=== PATIENT | female | born 2000 | race Caucasian/White ===

== ENCOUNTER 2022-04-12 13:32 | Outpatient (CLI) | payer BC, SELFPAY ==
[2022-04-12 21:37] LABS: Chlamydia DNA Amplified* NOT DETECTED (No Detected); GC DNA Amplified* NOT DETECTED (No Detected)
== END 2022-04-12 13:33 | disposition home or self-care (01) ==
PROVIDERS: Visit Provider Physician Assistant
DX: Z01.419 Encounter for gynecological examination (general) (routine) without abnormal findings (principal); Z12.4 Encounter for screening for malignant neoplasm of cervix; Z11.3 Encounter for screening for infections with a predominantly sexual mode of transmission
CPT/HCPCS: 87491; 87591; 88174

== ENCOUNTER 2022-04-23 18:26 | Emergency (ER) | payer BC, SELFPAY ==
[2022-04-23 18:48] VITALS: BP 103/65; PULSE 63; RESP 16; TEMP 36.6; O2SAT 99; BMI 19.2
[2022-04-23 19:29] LABS: Appearance Urine Cloudy (Clear); Bilirubin Urine Negative (Negative); Blood Urine 3+ (Negative); Color Urine Yellow (Yellow); Glucose Urine Negative (Negative); HCG Qualitative* Negative (Negative); Ketones Urine Negative (Negative); Leukocyte Esterase Urine 1+ (Negative); Nitrite Urine Negative (Negative); Protein Urine 3+ (Negative); Specific Gravity Urine >= 1.030 (1.000-1.030); Urobilinogen Urine 0.2 (0.2-1.0); pH Urine 6.5 (5.0-8.5)
[2022-04-23 19:43] LABS: RBC Urine 25-50 (0-2); Squamous Epithelial Cell Urine Few (None-Few); WBC Urine >100 (0-5)
[2022-04-23 19:44] LABS: Bacteria Urine Few
--- NOTE | 2022-04-23 20:35 | ED.GENADULT ---
HPI - General Adult General Chief complaint: Urogenital Problems, Female Stated complaint: POSSIBLE UTI Time Seen by Provider: 04/23/22 20:24 History of Present Illness HPI narrative: 21-year-old generally healthy woman presenting to the emergency department with complaint of dysuria. No fever. Is having some low abdominal cramping flank pain. No nausea. This all began today. She has noted some hematuria as well. Has never had a urinary tract infection she can recall. 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 Denies . Related Data Previous Rx's Medication Instructions Recorded norethindrone acetate 1 mg-ethinyl 1 tab PO QDAY #84 tabs 04/12/22 estradiol 20 mcg tablet () Allergies Allergy/AdvReac Type Severity Reaction Status Date / Time No Known Drug Allergies Allergy Verified 04/12/22 12:48 Review of Systems Status of ROS: Reports: 6 or more systems reviewed and unremarkable except as noted in History and below [facility] Medical History No chronic problems Surgical History (Updated 04/12/22 @ 13:30 by Mariela Brown PA-C) No history of previous surgery Family History (Updated 04/12/22 @ 13:31 by Mariela Brown PA-C) Unknown Adopted Social History Narrative: Student at [employer]. Studying chemistry. Nonsmoker, rare alcohol use. No recreational drug use. Feels safe at home and no concerns with abuse. Little interest or pleasure in doing things: not at all Feeling down, depressed, or hopeless: not at all Exam Narrative: Exam Narrative: Small stature. NAD. Breathing easily. Speaking easily. Skin is warm and dry. Extremities without difficulty. No edema. Abdomen is soft and little uncomfortable in the suprapubic area to palpation. No flank pain. Genitourinary exam is not done Const: Vital Signs, click to edit/add: Vital Signs - 24 hr 04/23/22 18:48 Temperature 97.9 F Pulse Rate [Left P ulse Oximeter] 63 Respiratory Rate 16 Blood Pressure [Ri ght Upper Arm] 103/65 Pulse Oximetry 99 Oxygen Delivery Me thod Room Air Documenting provider has reviewed patient's vital signs: yes Course Vital Signs Vital signs: Initial Vital Signs Temperature 97.9 F 04/23/22 18:48 Temperature Source Temporal Artery Scan 04/23/22 18:48 Pulse Rate 63 04/23/22 18:48 Pulse Rhythm 04/23/22 18:48 Respiratory Rate 16 04/23/22 18:48 Blood Pressure 103/65 04/23/22 18:48 Blood Pressure Mean 77 04/23/22 18:48 Blood Pressure Position Sitting 04/23/22 18:48 Pulse Oximetry 99 04/23/22 18:48 Oxygen Delivery Method 04/23/22 18:48 Vital Signs Temperature 97.9 F 04/23/22 18:48 Pulse Rate 63 04/23/22 18:48 Respiratory Rate 16 04/23/22 18:48 Blood Pressure 103/65 04/23/22 18:48 Pulse Oximetry 99 04/23/22 18:48 Oxygen Delivery Method 04/23/22 18:48 Temperature 97.9 F 04/23/22 18:48 Pulse Rate 63 04/23/22 18:48 Respiratory Rate 16 04/23/22 18:48 Blood Pressure 103/65 04/23/22 18:48 Pulse Oximetry 99 04/23/22 18:48 Oxygen Delivery Method 04/23/22 18:48 Medical Decision Making Lab Data Lab results reviewed: Yes I reviewed the patient's lab results Labs: Lab Results 04/23/22 Range/Units 19:20 HCG, Qual Negative (Negative) Urine Color Yellow (Yellow) Urine Appearance Cloudy A (Clear) Urine pH 6.5 (5.0-8.5) Ur Specific [place] >= 1.030 (1.000-1.030) Urine Protein 3+ A (Negative) Urine Glucose (UA) Negative (Negative) Urine Ketones Negative (Negative) Urine Blood 3+ A (Negative) Urine Nitrite Negative (Negative) Urine Bilirubin Negative (Negative) Urine Urobilinogen 0.2 (0.2-1.0) Ur Leukocyte Esterase 1+ A (Negative) Urine RBC 25-50 A (0-2) Urine WBC >100 A (0-5) Ur Squamous Epith Cells Few (None-Few) Urine Bacteria Few A (None) Discharge Plan Discharge Clinical Impression: Cystitis Patient Disposition: Home, Self-Care Condition: Stable Additional Instructions: Focus on unsweetened/unsugared hydration. Report fever, persistent and increasing abdominal pain, repeated vomiting. A urine culture will be pending here and if we need to change antibiotics we will contact you. Cephalexin and phenazopyridine from [facility] Prescriptions: No Action norethindrone ac-eth estradiol [07/29 (21)] 1-20 mg-mcg tablet 1 tab PO QDAY Qty: 84 3RF Follow Up/Referrals: Provider,Not a Local [Primary Care Provider] - Stand Alone Forms: [employer] Info Instructions
[2022-04-23 21:10] VITALS: BP 103/65; PULSE 63; RESP 16; TEMP 36.6
== END 2022-04-23 21:10 | disposition home or self-care (01) ==
LOC: ED 20:48
PROVIDERS: Family Medicine; Emergency Provider Family Medicine
DX: N30.90 Cystitis, unspecified without hematuria (principal)
CPT/HCPCS: 81001; 84703; 87086; 87186; 99283